=== PATIENT | male | born 1970 | race Caucasian/White ===

== ENCOUNTER 2019-10-23 12:33 | Emergency (ER) | payer BC ==
--- NOTE | 2019-10-23 13:10 | ERPHSYRPT ---
- History of Present Illness Time Seen by Provider: 10/23/19 13:10 Historian: patient Exam Limitations: no limitations Physician History: the patient is a 48-year-old male has and 4 drinking 4-6 beers daily and with a poor diet presents with a chief complaint of epigastric pain. He reportedly ate a fatty greasy breakfast before work at around 10:00 and started to notice epigastric discomfort shortly after consuming a meal. An hour prior to arrival the pain would fully get worse it is described as a sharp pain located in his epigastrium that radiates to his back. The pain is constant and moderate to severe in severity and associated with nausea. He denied vomiting, diarrhea, chills, fever, chest pain and shortness of breath. He denies history of hematochezia, melena, NSAID, as her knees and currently does not take anticoagulants. Timing/Duration: today Quality: stabbing Abdominal Pain Onset Location: epigastric Pain Radiation: back Allergies/Adverse Reactions: No Known Drug Allergies Allergy (Verified 10/23/19 13:10) - Nursing Vital Signs Nursing Vital Signs: Initial Vital Signs Temperature 97.8 F 10/23/19 12:59 Pulse Rate 64 10/23/19 12:59 Respiratory Rate 16 10/23/19 12:59 Blood Pressure 141/85 10/23/19 12:59 O2 Sat by Pulse Oximetry 97 10/23/19 12:59 Pain Scale Pain Intensity 4 Ordered Tests: Active Orders 24 hr Category Date Time Status EKG-ER Only STAT Care 10/23/19 13:16 Active IV Insertion STAT Care 10/23/19 13:16 Active BMP Stat Lab 10/23/19 13:35 Completed CBC W DIFF Stat Lab 10/23/19 13:35 Completed Hepatic Function Panel Stat Lab 10/23/19 13:35 Completed LIPASE Stat Lab 10/23/19 13:35 Completed TROPONIN Q3H Lab 10/23/19 13:35 Completed TROPONIN Q3H Lab 10/23/19 16:30 Ordered TROPONIN Q3H Lab 10/23/19 19:30 Ordered TROPONIN Q3H Lab 10/23/19 22:30 Ordered TROPONIN Q3H Lab 10/24/19 01:30 Ordered Medication Summary Discontinued Medications Generic Name Dose Route Start Last Admin Trade Name Freq PRN Reason Stop Dose Admin Ondansetron HCl 4 mg 10/23/19 13:16 10/23/19 13:36 Zofran 4 Mg/2 Ml Vial IV 10/23/19 13:17 4 mg STAT ONE Administration Ondansetron HCl Confirm 10/23/19 13:19 Zofran 4 Mg/2 Ml Vial Administered 10/23/19 13:20 Dose 4 mg .ROUTE .STK-MED ONE Pantoprazole Sodium 40 mg 10/23/19 13:16 10/23/19 13:37 Protonix 40 Mg Iv IV 10/23/19 13:17 40 mg STAT ONE Administration Pantoprazole Sodium Confirm 10/23/19 13:19 Protonix 40 Mg Iv Administered 10/23/19 13:20 Dose 40 mg IV .STK-MED ONE Lab/Rad Data: Laboratory Result Diagrams 10/23/19 13:35 10/23/19 13:35 Laboratory Results 10/23/19 10/23/19 10/23/19 Range/Units 13:35 13:35 13:35 WBC 8.0 (4.0-10.5) K/mm3 RBC 4.86 (4.1-5.6) M/mm3 Hgb 15.5 (12.5-18.0) gm/dl Hct 45.4 (42-50) % MCV 93.4 (78-100) fl MCH 31.9 (26-32) pg MCHC 34.1 (32-36) g/dl RDW 13.5 (11.5-14.0) % Plt Count 216 (150-450) K/mm3 MPV 9.4 (6-9.5) fl Gran % 66.9 H (36.0-66.0) % Eos # (Auto) 0.40 (0-0.5) Absolute Lymphs (auto) 1.57 (1.0-4.6) Absolute Monos (auto) 0.64 (0.0-1.3) Lymphocytes % 19.6 L (24.0-44.0) % Monocytes % 8.0 (0.0-12.0) % Eosinophils % 5.0 (0.00-5.0) % Basophils % 0.5 (0.0-0.4) % Absolute Granulocytes 5.37 (1.4-6.9) Basophils # 0.04 (0-0.4) Sodium 141 (137-145) mmol/L Potassium 4.2 (3.5-5.1) mmol/L Chloride 106 (98-107) mmol/L Carbon Dioxide 28 (22-30) mmol/L Anion Gap 11.1 (5-15) MEQ/L BUN 13 (9-20) mg/dL Creatinine 1.04 (0.66-1.25) mg/dL Estimated GFR > 60.0 ML/MIN Glucose 106 (74-106) mg/dL Calcium 9.4 (8.4-10.2) mg/dL Total Bilirubin 0.50 (0.2-1.3) mg/dL Direct Bilirubin 0.3 (0.0-0.4) mg/dL AST 52 (17-59) U/L ALT 83 H (0-50) U/L Alkaline Phosphatase 66 (38-126) U/L Troponin I < 0.012 (0.000-0.034) ng/mL Serum Total Protein 8.0 (6.3-8.2) g/dL Albumin 4.2 (3.5-5.0) g/dL Lipase 96 (23-300) U/L - Departure Departure Disposition: Home Clinical Impression: Epigastric pain Condition: Stable Critical Care Time: No Referrals: MICHAEL CAMPBELL MD [Primary Care Provider] - Additional Instructions: Please follow-up with Dr. Sethi on 10/29/19 at 09:30 am at the [facility], [address] [place] [address], to undergo endoscopy for further evaluation for your epigastric pain. Please do not eat or drink anything after midnight on 10/28/19. Prescriptions: Omeprazole 20 mg PO DAILY #30 capsule.
[2019-10-23] MEDS ORDERED: Zofran 4 MG/2 ML VIAL IV ONE (13:16)
[2019-10-23] MEDS ORDERED: PROTONIX 40 MG IV IV ONE ×2 (13:16→13:19)
[2019-10-23] MEDS ORDERED: Zofran 4 MG/2 ML VIAL ONE (13:19)
[2019-10-23 13:50] LABS: Absolute Neutrophil Ct (ANC) 5.37 (1.4-6.9); BASOPHIL % 0.5 % (0.0-0.4); Basophil (Absolute #) 0.04 (0-0.4); Hematocrit 45.4 % (42-50); Hemoglobin 15.5 gm/dl (12.5-18.0); Lymphocyte (Absolute #) 1.57 (1.0-4.6); Lymphocytes % 19.6 % (24.0-44.0); Mean Cell Volume 93.4 fl (78-100); Mean Corpuscular Hemoglobin 31.9 pg (26-32); Mean Corpuscular Hgb Concent. 34.1 g/dl (32-36); Mean Platelet Volume 9.4 fl (6-9.5); Monocyte (Absolute #) 0.64 (0.0-1.3); Neutrophil % 66.9 % (36.0-66.0); Platelet Count 216 K/mm3 (150-450); Red Blood Count 4.86 M/mm3 (4.1-5.6); Red Cell Distribution Width 13.5 % (11.5-14.0)
[2019-10-23 14:03] LABS: ALBUMIN 4.2 g/dL (3.5-5.0); ALKALINE PHOSPHATASE 66 U/L (38-126); ANION GAP 11.1 MEQ/L (5-15); BLOOD UREA NITROGEN 13 mg/dL (9-20); CHLORIDE 106 mmol/L (98-107); Calcium 9.4 mg/dL (8.4-10.2); Carbon Dioxide 28 mmol/L (22-30); Creatinine 1 1.04 mg/dL (0.66-1.25); Direct Bilirubin 0.3 mg/dL (0.0-0.4); Glucose 106 mg/dL (74-106); LIPASE 96 U/L (23-300); Potassium 4.2 mmol/L (3.5-5.1); SGOT/AST 52 U/L (17-59); SGPT/ALT 83 U/L (0-50); SODIUM 141 mmol/L (137-145)
[2019-10-23 14:53] VITALS: BP 123/81; PULSE 55; O2SAT 97
== END 2019-10-23 14:59 | disposition home or self-care (01) ==
LOC: ED 12:33
DX: R10.13 Epigastric pain (principal)
CPT/HCPCS: 36000; 36415; 80048; 80076; 83690; 84484; 85025; 93005; 96374; 96375; 99284; J2405